=== PATIENT | female | born 1960 ===

== ENCOUNTER 2019-08-26 08:02 | Outpatient (CLI) | payer OTHER | END 2019-08-26 08:05 | disposition home or self-care (01) | LOC: SONOGRAMA 08:02 | DX: E04.1 Nontoxic single thyroid nodule (principal) ==

== ENCOUNTER 2019-11-11 07:45 | Outpatient (CLI) | payer OTHER | END 2019-11-11 09:08 | disposition home or self-care (01) | LOC: SONOGRAMA 07:45 | DX: E04.1 Nontoxic single thyroid nodule (principal) ==